=== PATIENT | male | born 1935 ===

== ENCOUNTER → 2017-12-12 | Outpatient (CLI) | payer OTHER, BC | LOC: BHLMT 10:15 | PROVIDERS: ATTEND Internal Medicine Interventional Cardiology | DX: I42.8 Other cardiomyopathies (principal); I50.22 Chronic systolic (congestive) heart failure; I25.10 Atherosclerotic heart disease of native coronary artery without angina pectoris; I48.2 Chronic atrial fibrillation; I34.0 Nonrheumatic mitral (valve) insufficiency | CPT/HCPCS: 93005-PO ==

== ENCOUNTER → 2017-12-26 | Outpatient (CLI) | payer OTHER, BC | LOC: BHLMT 13:15 | PROVIDERS: ATTEND Internal Medicine Interventional Cardiology | DX: I50.9 Heart failure, unspecified (principal) | CPT/HCPCS: 93306-PO ==

== ENCOUNTER → 2018-11-20 | Outpatient (CLI) | payer OTHER, BC | LOC: BHLMT 13:15 | PROVIDERS: ATTEND Internal Medicine Cardiovascular Disease | DX: I42.9 Cardiomyopathy, unspecified (principal); I25.10 Atherosclerotic heart disease of native coronary artery without angina pectoris | CPT/HCPCS: 93306-PO ==